=== PATIENT | male | born 1985 | race Caucasian/White ===

== ENCOUNTER 2017-01-21 14:02 | Emergency (ER) | payer OTHER ==
[~2017-01-21] VITALS: Ht 165.1 cm; Wt 72.0 kg
[~2017-01-21 14:02] MED LIST: LEVA15HF6 INH; SYMB80120 INH
[2017-01-21 14:10] VITALS: Ht 165.1 cm; Wt 72.0 kg
[2017-01-21] MEDS ORDERED: ALBU18HF INHALATION (14:22)
--- NOTE | 2017-01-21 14:38 | ERD ---
ER Documentation Chief Complaint Date/Time DATE: 01/21/17 TIME: 14:36 Chief Complaint NEEDS MED REFILL FOR ALBUTEROL DENIES SOB OR PAIN HPI This patient is a 31-year-old male with history of asthma presenting to the emergency department for request for medication refill. The patient states he has been out of his albuterol inhaler for 1 day. Patient denies shortness of breath, fevers, cough, or other symptoms. He states he uses the albuterol approximately 3 times per week. ROS All systems reviewed and are negative except as per history of present illness. Medications Home Meds Active Scripts Albuterol Sulfate* (Ventolin HFA*) 18 Gm Hfa.aer.ad, 2 PUFF INHALATION Q4H, #1 INHALER Prov:MICHELLE HWANG PA-C 01/21/17 Reported Medications Levalbuterol* (Xopenex* HFA) 15 Gm Inha, 2 PUFFS INH Q4H Y for WHEEZING AND SOB , EA 10/17/14 Budesonide-Formoterol Fumarate* (Symbicort*) 80-4.5 Inha, 1 PUFF INH BID, INH 10/17/14 Allergies Allergies: Coded Allergies: Penicillins (Verified Allergy, Unknown, rash, 12/03/14) PMhx/Soc History of Surgery: Yes (APPENDECTOMY) Anesthesia Reaction: No Hx Neurological Disorder: No Hx Respiratory Disorders: Yes (asthma) Hx Cardiac Disorders: No Hx Psychiatric Problems: No Hx Miscellaneous Medical Probl: No Hx Alcohol Use: Yes (socially drinks) Hx Substance Use: No Hx Tobacco Use: No FmHx Noncontributory for chief complaint Physical Exam Vitals Vital Signs Date Time Temp Pulse Resp B/P Pulse Ox O2 Delivery O2 Flow Rate FiO2 01/21/17 14:10 97.8 85 20 139/67 97 Physical Exam Const: The patient is resting comfortably in no acute distress. Head: Atraumatic Eyes: Normal Conjunctiva ENT: Normal External Ears, Nose and Mouth. Neck: Full range of motion..~ No meningismus. Resp: There are no signs of respiratory distress. There are no retractions. There is mild inspiratory wheezing noted to the anterior chest and bilateral upper lung cerda. There is no stridor. There are no crackles, rhonchi, or rales noted. Cardio: Regular rate and rhythm, no murmurs Abd: Soft, non tender, non distended. Normal bowel sounds Skin: No petechiae or rashes Back: No midline or flank tenderness Ext: No cyanosis, or edema Neur: Awake and alert Psych: Normal Mood and Affect Procedures/MDM 31-year-old male presents for refill of his albuterol. On physical examination the patient's vitals are within normal limits. The patient is 97% on room air. There are no signs of retractions or respiratory distress. I will refill the patient's Ventolin inhaler exactly as prescribed by his primary care physician. The patient has an appointment in 3 days with his PCP. He understands that he is medication. All questions and concerns addressed. I have low suspicion for respiratory distress, status asthmaticus, pneumothorax, bronchitis, pneumonia, septicemia, or other emergent conditions. Strict ER return precautions discussed and the patient demonstrates good understanding. Departure Diagnosis: Primary Impression: Asthma Asthma severity: unspecified severity Asthma complication type: uncomplicated Qualified Code: J45.909 - Uncomplicated asthma, unspecified asthma severity Condition: Fair Patient Instructions: Asthma, Acute (Adult) Referrals: JESSIKA SANTIAGO Additional Instructions: Follow up with your PCP within the next 1-3 days for a more thorough evaluation and a possible referral to a specialist. Return the the emergency department immediately if symptoms worsen or change. If you have any questions regarding medications, ask your pharmacist or us before you leave. If any adverse reactions, occur while taking your medications, discontinue the treatment and return to the emergency department immediately. If any new or worsening symptoms, uncontrolled fevers, or other unexplained symptoms occur, return to the emergency department immediately. Take your medications as directed, and complete the entire course of treatment. MICHELLE HWANG PA-C January 21, 2017 14:38
== END 2017-01-21 17:52 | disposition home or self-care (01) ==
LOC: E/R 14:02
DX: J45.901 Unspecified asthma with (acute) exacerbation (principal)
CPT/HCPCS: 99281

== ENCOUNTER 2017-07-10 11:15 | Emergency (ER) | payer OTHER ==
[~2017-07-10] VITALS: Ht 172.7 cm; Wt 71.0 kg
[~2017-07-10 11:15] MED LIST changes: +ALBU18HF INHALATION
[2017-07-10 11:17] VITALS: Ht 172.7 cm; Wt 71.0 kg
[2017-07-10] MEDS ORDERED: predniSONE 20 MG TAB PO STA (11:22)
[2017-07-10] MEDS ORDERED: IPRATROPIUM (NEB) 0.5 MG/2.5 ML AMP INH STA (11:22)
[2017-07-10] MEDS ORDERED: ALBUTEROL 0.5% (NEB) 2.5 MG/0.5 ML AMP INH STA (11:22)
[2017-07-10] MEDS ORDERED: PRED20TA PO (11:24)
[2017-07-10] MEDS ORDERED: ALBU8.5H3 INH (11:24)
--- NOTE | 2017-07-10 12:03 | ERD ---
ER Documentation Chief Complaint Chief Complaint pt is bib self with c/o "asthma attack" ran out of inhaler HPI 32-year-old man here for asthma attack. He has a long history of asthma and states he has been wheezing for a few days and ran out of albuterol. He denies cough, no fevers or chills, no chest pain, no calf or leg swelling. Patient denies recent antibiotic use or recent travel. ROS All systems reviewed and are negative except as per history of present illness. Medications Home Meds Active Scripts Prednisone* (Prednisone*) 20 Mg Tab, 20 MG PO BID for 4 Days, #8 TAB Prov:VARSHA TORRES MD 07/10/17 Albuterol Sulfate* (Proair HFA*) 8.5 Gm Hfa.aer.ad, 2 PUFF INH Q6H Y for WHEEZING AND SOB, #1 INHALER Prov:VARSHA TORRES MD 07/10/17 Albuterol Sulfate* (Ventolin HFA*) 18 Gm Hfa.aer.ad, 2 PUFF INHALATION Q4H, #1 INHALER Prov:MICHELLE HWANG PA-C 01/21/17 Discontinued Reported Medications Levalbuterol* (Xopenex* HFA) 15 Gm Inha, 2 PUFFS INH Q4H Y for WHEEZING AND SOB , EA 10/17/14 Budesonide-Formoterol Fumarate* (Symbicort*) 80-4.5 Inha, 1 PUFF INH BID, INH 10/17/14 Allergies Allergies: Coded Allergies: Penicillins (Verified Allergy, Unknown, rash, 07/10/17) PMhx/Soc Asthma Medical and Surgical Hx: pt denies Medical Hx, pt denies Surgical Hx History of Surgery: Yes (APPENDECTOMY) Anesthesia Reaction: No Hx Neurological Disorder: No Hx Respiratory Disorders: Yes (asthma) Hx Cardiac Disorders: No Hx Psychiatric Problems: No Hx Miscellaneous Medical Probl: No Hx Alcohol Use: Yes (socially drinks) Hx Substance Use: No Hx Tobacco Use: No Smoking Status: Former smoker FmHx Family History: No diabetes Physical Exam Vitals Vital Signs Date Time Temp Pulse Resp B/P Pulse Ox O2 Delivery O2 Flow Rate FiO2 07/10/17 11:29 101 24 90 21 07/10/17 11:17 98.7 101 24 144/65 90 Physical Exam GENERAL: Well-developed, well-nourished, well-hydrated, in no apparent distress , looks nontoxic in appearance HEENT: Moist mucous membranes, pink conjunctiva, no cervical spine tenderness or step-off deformities, no goiter, no jaundice or icterus, extraocular movements intact without pain. No submandibular induration, and no pharyngeal erythema NEURO: Alert and oriented 3, cranial nerves II through XII intact bilaterally, pupils equal round reactive to light, no focal deficits or facial asymmetry, sensation intact distally Strength 5/5 in upper and lower extremities bilaterally CARDIAC: Regular rate and rhythm, no murmurs rubs or gallops LUNGS: Bilateral dense wheezing, no crackles or stridor ABDOMEN: Soft nontender, no guarding, no rigidity, no rebound, no psoas sign no obturator sign. Normoactive bowel sounds SKIN: Warm and dry to touch, no abrasions, contusions, or hematomas, no lacerations, no ecchymosis, no target lesions, and without ulcers EXTREMITIES: No clubbing cyanosis or edema, calves are bilaterally symmetrical, no Homans sign, no popliteal cord sign. Distal pulses equal and bilateral PSYCH: Normal affect without agitation or irritability Results 24 hrs Current Medications Medications (Trade) Dose Ordered Sig/Marcin Route PRN Reason Start Time Stop Time Status Last Admin Dose Admin Albuterol (Proventil 0.5% (Neb)) 10 mg ONCE STAT INH 07/10/17 11:22 07/10/17 11:23 DC 07/10/17 11:29 Ipratropium [place] (Atrovent 0.02% (Neb)) 1 mg ONCE STAT INH 07/10/17 11:22 07/10/17 11:23 DC 07/10/17 11:29 Prednisone (Prednisone) 60 mg ONCE STAT PO 07/10/17 11:22 07/10/17 11:23 DC 07/10/17 11:57 Procedures/MDM Patient was placed on loss control technician rhythm strip revealed a sinus rhythm at 80 bpm. Patient was afebrile. I administered albuterol 10 mg via nebulizer, ipratropium 1 mg via nebulizer, and prednisone 60 mg p.o. 1. Pulmonary exam was repeated by me and revealed clear lung sounds, patient was no longer dyspneic and stated he felt much better. Respiratory rate was 18 breaths per minute and normal, oxygen saturation was within normal limits. Differential diagnoses considered, included but not limited to acute coronary syndrome, pulmonary embolism, aortic dissection, abdominal aortic aneurysm, sepsis, stroke, meningitis, encephalitis, pneumonia, appendicitis, cholecystitis , bowel obstruction, pyelonephritis, nephrolithiasis, cystitis, as well as metabolic, hematologic, and electrolyte abnormalities. As well as abscess, cellulitis, fractures, and dislocations. Patient feels much better at this time, and vital signs are normal, symptoms have improved. I did give strict instructions to return to the ED if symptoms continue or worsen, patient will otherwise follow-up with primary care physician. Patient understood instructions and agreed to plan. Disclaimer: Inadvertent spelling and grammatical errors are likely due to EHR/ dictation software use and do not reflect on the overall quality of patient care. Also, please note that the electronic time recorded on this note does not necessarily reflect the actual time of the patient encounter. Departure Diagnosis: Primary Impression: Asthma exacerbation Asthma severity: moderate Asthma persistence: unspecified Qualified Code: J45.901 - Moderate asthma with exacerbation, unspecified whether persistent Condition: Good Patient Instructions: Asthma, Acute (Adult) VARSHA TORRES MD Jul 10, 2017 12:03
[2017-07-10 12:39] VITALS: BP 128/68; PULSE 77; RESP 18
== END 2017-07-10 12:47 | disposition home or self-care (01) ==
LOC: E/R 11:15
DX: J45.901 Unspecified asthma with (acute) exacerbation (principal); R40.2362 Coma scale, best motor response, obeys commands, at arrival to emergency department; R40.2142 Coma scale, eyes open, spontaneous, at arrival to emergency department; Z87.891 Personal history of nicotine dependence
CPT/HCPCS: 94644; J7512; Z7502; Z7610